=== PATIENT | female | born 1955 | race African-American/Black ===

== ENCOUNTER 2016-09-03 07:05 | Emergency (ER) | payer MEDICAID, OTHER ==
[~2016-09-03] VITALS: Ht 154.9 cm; Wt 62.0 kg
[~2016-09-03 07:05] MED LIST: BENA1TAB18 PO; BENAZEPRIL; CARV12.545 PO; CARVEDILOL; DIGO125T82 PO; DIGOXIN; LASIX
[2016-09-03 08:01] VITALS: BP 136/79
== END 2016-09-03 09:18 | disposition home or self-care (01) ==
LOC: ER 07:05
DX: Z76.0 Encounter for issue of repeat prescription (principal); I11.0 Hypertensive heart disease with heart failure; I50.9 Heart failure, unspecified
CPT/HCPCS: 99283; Z7610

== ENCOUNTER 2017-11-21 05:27 | Inpatient (IN) | payer OTHER ==
[~2017-11-21] VITALS: Ht 149.9 cm; Wt 59.0 kg
[2017-11-21] VITALS (9 sets, daily range): BP systolic 106–161; BP diastolic 60–104
[2017-11-21] MEDS ORDERED: ASPIRIN 81MG TABLET PO ONE (06:30)
[2017-11-21] MEDS ORDERED: NITROGLYCERIN OINT 1GM/INCH UDPKT TD ONE (06:30)
[2017-11-21] MEDS ORDERED: FUROSEMIDE 40MG/4ML VIAL IVP ONE (06:30)
[2017-11-21 07:16] LABS: BASOPHILS % 0.5 % (0.0-2.0); EOSINOPHILS % 0.7 % (0.0-5.0); HEMATOCRIT. 46.3 % (36.0-48.0); HEMOGLOBIN. 15.7 g/dL (12.0-16.0); LYMPHOCYTES % 30.5 % (20.0-50.0); MEAN CORPUSCULAR HEMOGLOBIN 30.8 pg (28.0-32.0); MEAN CORPUSCULAR VOLUME 91.1 fL (81.0-99.0); MEAN PLATELET VOLUME 9.7 fl (7.4-10.4); MONOCYTES % 7.4 % (2.0-8.0); NEUTROPHILS % 60.9 % (40.0-76.0); PLATELET 196 x1000/uL (130-400); RED BLOOD CELL COUNT 5.09 mill/uL (4.2-5.4); RED CELL DISTRIBUTION WIDTH 15.1 % (11.6-14.6)
[2017-11-21 07:19] LABS: PROTHROMBIN TIME 10.3 sec (9.1-11.1)
[2017-11-21 07:23] LABS: CHLORIDE 107 mEq/L (98-107)
[2017-11-21 07:47] LABS: DIGOXIN < 0.1 ng/mL (0.9-2.0)
[2017-11-21] MEDS ORDERED: HYDRALAZINE 20MG/ML VIAL IV PRN (09:15)
[2017-11-21 10:06] LABS: CREATINE KINASE MB FRACTION 36.7 ng/mL (0.5-3.6)
[2017-11-21] MEDS ORDERED: HYDROCODONE/ACETAMINOPHEN 5/325MG TABLET PO PRN (12:30)
[2017-11-21] MEDS ORDERED: MORPHINE SULFATE 4 MG/ML CPJ (NOT FOR IM USE) IV PRN (12:30)
[2017-11-21] MEDS ORDERED: CLOPIDOGREL 75MG TABLET PO SCH (13:00)
[2017-11-21] MEDS: NITROGLYCERIN OINT 1GM/INCH UDPKT TD SCH ×2 (13:28→22:00)
[2017-11-21] MEDS ORDERED: METOPROLOL TARTRATE 25MG TABLET PO SCH (13:30)
[2017-11-21] MEDS ORDERED: NITROGLYCERIN OINT 1GM/INCH UDPKT TD SCH (14:00)
[2017-11-21] MEDS ORDERED: NICOTINE 21MG PATCH TD SCH (14:30)
[2017-11-21] MEDS ORDERED: FUROSEMIDE 40MG/4ML VIAL IVP SCH (14:30)
[2017-11-21] MEDS: AMLODIPINE 5MG TABLET PO SCH ×2 (14:48→22:29)
[2017-11-21] MEDS: ENOXAPARIN 60MG/0.6ML SYR SUBCUT SCH ×2 (14:48→20:09)
[2017-11-21] MEDS ORDERED: HYDR-4009 PO (15:01)
[2017-11-21 16:38] LABS: CREATINE KINASE MB FRACTION 47.6 ng/mL (0.5-3.6)
[2017-11-21 17:42] LABS: *AMPHETAMINES SCREEN URINE NEGATIVE (NEGATIVE); *BARBITURATES SCREEN URINE NEGATIVE (NEGATIVE); *BENZODIAZEPINES SCREEN URINE NEGATIVE (NEGATIVE); *COCAINE SCREEN URINE PRESUMTIVE POSITIVE (NEGATIVE); CANNABINOID URINE SCREEN NEGATIVE (NEGATIVE); METHADONE URINE SCREEN NEGATIVE (NEGATIVE); OPIATES URINE SCREEN NEGATIVE (NEGATIVE); PHENCYCLIDINE URINE SCREEN NEGATIVE (NEGATIVE)
[2017-11-21] MEDS ORDERED: ATORVASTATIN CALCIUM 40MG TABLET PO SCH (21:00)
[2017-11-22] MEDS ORDERED: ASPIRIN 81MG TABLET PO SCH (09:00)
== END 2017-11-22 00:02 | disposition short-term general hospital (02) | DRG 816 ==
LOC: ER 05:41 → 3WST 08:35 → EDBEDREQ 08:42 → EDBEDREQSVC 08:42 → EDBEDREQTM 08:42 → ENRESERV 10:41 → 3WST 11:35
PROVIDERS: ADMIT Internal Medicine; ATTEND Internal Medicine
DX: T40.5X1A Poisoning by cocaine, accidental (unintentional), initial encounter (principal); I21.4 Non-ST elevation (NSTEMI) myocardial infarction; I50.23 Acute on chronic systolic (congestive) heart failure; I42.9 Cardiomyopathy, unspecified; M62.82 Rhabdomyolysis; I11.0 Hypertensive heart disease with heart failure; E78.5 Hyperlipidemia, unspecified; F14.988 Cocaine use, unspecified with other cocaine-induced disorder; F17.200 Nicotine dependence, unspecified, uncomplicated; I34.0 Nonrheumatic mitral (valve) insufficiency; I73.9 Peripheral vascular disease, unspecified; J44.9 Chronic obstructive pulmonary disease, unspecified; Z91.14 Patient's other noncompliance with medication regimen; Y92.89 Other specified places as the place of occurrence of the external cause
CPT/HCPCS: 36415; 71045; 80061; 80162; 80305; 82550; 82553; 83880; 84145; 84443; 84484; 93005; 93306; 96374; 99291; J1650; J1940

== ENCOUNTER 2019-01-14 02:20 | Emergency (ER) | payer OTHER ==
[~2019-01-14] VITALS: Ht 160 cm; Wt 65.0 kg
[2019-01-14] MEDS ORDERED: ALBUTEROL (0.083%) 2.5MG/3ML NEB HHN STA (02:28)
[2019-01-14] MEDS ORDERED: IPRATROPIUM BROMIDE (0.02%) 0.5MG/2.5ML NEB HHN STA (02:28)
[2019-01-14] MEDS ORDERED: METHYLPREDNISOLONE SOD SUCC 125 MG/2 ML VIAL IV STA (02:28)
[2019-01-14] MEDS ORDERED: ACETAMINOPHEN 500MG TABLET PO ONE (02:30)
[2019-01-14] MEDS ORDERED: ASPIRIN 81MG TABLET PO ONE (02:30)
[2019-01-14] MEDS ORDERED: MAGNESIUM 2 G PREMIX 50 ML IV ONE (02:30)
[2019-01-14] MEDS ORDERED: NITROGLYCERIN 0.4MG TABLET SL SL PRN (02:30)
[2019-01-14] MEDS ORDERED: FUROSEMIDE 40MG/4ML VIAL IVP ONE (02:45)
[2019-01-14 03:08] LABS: BASOPHILS % 0.8 % (0.0-2.0); EOSINOPHILS % 0.5 % (0.0-5.0); HEMATOCRIT. 46.7 % (36.0-48.0); HEMOGLOBIN. 15.8 g/dL (12.0-16.0); LYMPHOCYTES % 18.9 % (20.0-50.0); MEAN CORPUSCULAR VOLUME 91.6 fL (81.0-99.0); MEAN PLATELET VOLUME 9.3 fl (7.4-10.4); MONOCYTES % 6.4 % (2.0-8.0); NEUTROPHILS % 73.4 % (40.0-76.0); PLATELET 205 x1000/uL (130-400); RED CELL DISTRIBUTION WIDTH 15.1 % (11.6-14.6)
[2019-01-14 03:16] LABS: CHLORIDE 114 mEq/L (98-107)
[2019-01-14] MEDS ORDERED: ASPIRIN 325MG EC TABLET PO SCH (04:00)
[2019-01-14 06:59] VITALS: BP 138/77
== END 2019-01-14 08:36 | disposition left against medical advice (07) ==
LOC: ER 02:20 → ENRESERV 07:38 → CANRESERV 07:38 → ER 08:36 → CANBEDREQ 17:34
DX: I11.0 Hypertensive heart disease with heart failure (principal); I50.9 Heart failure, unspecified; I25.2 Old myocardial infarction; F17.210 Nicotine dependence, cigarettes, uncomplicated; F14.10 Cocaine abuse, uncomplicated; Z71.6 Tobacco abuse counseling
CPT/HCPCS: 36415; 71045; 80053; 83880; 84484; 85025; 93005; 94644; 94660; 96365; 96375; 99285; 99406; J1940; J2930; J3475; J7611; Z7610; 99284

== ENCOUNTER 2020-05-25 09:49 | Emergency (ER) | payer MEDICARE, OTHER ==
[~2020-05-25] VITALS: Ht 167.6 cm; Wt 80.0 kg
[2020-05-25] MEDS ORDERED: IPRATROPIUM BROMIDE (0.02%) 0.5MG/2.5ML NEB HHN ONE (10:00)
[2020-05-25] MEDS ORDERED: ASPIRIN 81MG TABLET PO ONE (10:00)
[2020-05-25] MEDS ORDERED: ALBUTEROL (0.083%) 2.5MG/3ML NEB HHN ONE (10:00)
[2020-05-25] MEDS ORDERED: NITROGLYCERIN 0.4MG TABLET SL SL ONE (10:15)
[2020-05-25] MEDS ORDERED: NITROGLYCERIN 50MG PREMIX 250 ML IV ONE (10:15)
[2020-05-25 10:23] LABS: BG BASE EXCESS -6.9 mmol/L (-2.0-2.0); BG CARBOXYHEMOGLOBIN 1.4 % (0.5-1.5); BG DEOXYHEMOGLOBIN 9.1 % (0.0-5.0); BG FRACTION INSPIRED OXYGEN 100; BG HCO3 ACT 20.4 mmol/L (22.0-26.0); BG METHEMOGLOBIN 0.3 % (0.0-1.5); BG OXYGEN SATURATION 90.7 % (92.0-98.5); BG OXYHEMOGLOBIN 89.2 % (94.0-97.0); BG PCO2 46.9 mmHg (35.0-45.0); BG PH 7.256 (7.350-7.450); BG PO2 65.7 mmHg (75.0-100.0); BG SAMPLE SITE RIGHT RADIAL; BG TOTAL HEMOGLOBIN 19.4 g/dL (12.0-18.0); BG VENT MODE MASK - BIPAP
[2020-05-25 10:28] LABS: BASOPHILS % 0.6 % (0.0-2.0); EOSINOPHILS % 1.3 % (0.0-5.0); HEMATOCRIT. 53.2 % (36.0-48.0); LYMPHOCYTES % 48.6 % (20.0-50.0); MEAN CORPUSCULAR HEMOGLOBIN 32.2 pg (28.0-32.0); MEAN CORPUSCULAR VOLUME 95.4 fL (81.0-99.0); MEAN PLATELET VOLUME 9.6 fl (7.4-10.4); MONOCYTES % 4.2 % (2.0-8.0); NEUTROPHILS % 45.3 % (40.0-76.0); PLATELET 168 x1000/uL (130-400); RED BLOOD CELL COUNT 5.58 mill/uL (4.2-5.4); RED CELL DISTRIBUTION WIDTH 15.7 % (11.6-14.6)
[2020-05-25 10:40] LABS: PARTIAL THROMBOPLASTIN TIME 21.2 sec (23.4-31.0); PROTHROMBIN TIME 10.6 sec (9.6-11.0)
[2020-05-25] MEDS ORDERED: LEVOFLOXACIN 750MG PREMIX 150 ML IV ONE (12:00)
[2020-05-25 12:02] LABS: CHLORIDE 114 mEq/L (98-107)
[2020-05-25] MEDS ORDERED: DEXTROSE 50% WATER 50ML SYRINGE IV ONE (12:30)
[2020-05-25] MEDS ORDERED: FUROSEMIDE 40MG/4ML VIAL IVP ONE (12:45)
[2020-05-25] MEDS ORDERED: METHYLPREDNISOLONE SOD SUCC 125 MG/2 ML VIAL IV ONE (15:00)
[2020-05-25] MEDS ORDERED: ACETAMINOPHEN 325MG TABLET PO PRN (15:45)
[2020-05-25] MEDS ORDERED: ONDANSETRON HCL 4MG/2ML INJ IV PRN (15:45)
[2020-05-25] MEDS ORDERED: IPRATROPIUM/ALBUTEROL 0.5-3(2.5)MG/3ML NEB HHN PRN (15:45)
[2020-05-25] MEDS ORDERED: DIPHENHYDRAMINE 50MG/ML VIAL IV PRN (15:45)
[2020-05-25] MEDS ORDERED: CLONIDINE 0.1MG TABLET PO PRN (15:45)
[2020-05-25] MEDS ORDERED: CEFTRIAXONE 1 G PREMIX 50 ML IV SCH (16:00)
[2020-05-25] MEDS ORDERED: AZITHROMYCIN 500 MG in DEXT 5% WATER 250 ML IV SCH (17:00)
[2020-05-25] MEDS ORDERED: ENOXAPARIN 40MG/0.4ML SYR SUBCUT SCH (17:00)
[2020-05-25] MEDS ORDERED: IPRATROPIUM/ALBUTEROL 0.5-3(2.5)MG/3ML NEB HHN SCH (18:00)
[2020-05-25 18:44] VITALS: BP 136/84
[2020-05-25] MEDS ORDERED: METHYLPREDNISOLONE SOD SUCC 125 MG/2 ML VIAL IV SCH (21:00)
== END 2020-05-25 18:54 | disposition left against medical advice (07) ==
LOC: ER 09:49 → CANBEDREQ 20:21
DX: I11.0 Hypertensive heart disease with heart failure (principal); I50.43 Acute on chronic combined systolic (congestive) and diastolic (congestive) heart failure; R06.03 Acute respiratory distress; J44.9 Chronic obstructive pulmonary disease, unspecified; I25.2 Old myocardial infarction; E11.9 Type 2 diabetes mellitus without complications; F12.10 Cannabis abuse, uncomplicated; F14.10 Cocaine abuse, uncomplicated; F17.210 Nicotine dependence, cigarettes, uncomplicated; Z20.822 Contact with and (suspected) exposure to COVID-19
CPT/HCPCS: 36415; 36600; 71045; 80053; 82375; 82805; 82962; 83880; 84484; 85025; 85610; 85730; 93005; 94660; 96365; 96366; 96367; 96375; 99285; C9803; J0456; J0696; J1650; J1940; J1956; J2930; J7060; U0003; Z7610